=== PATIENT | male | born 1985 | race Hispanic/Latino ===

== ENCOUNTER 2018-05-20 19:07 | Emergency (ER) | payer OTHER ==
[~2018-05-20] VITALS: Ht 177.8 cm; Wt 97.5 kg
[~2018-05-20 19:07] MED LIST: MOTRIN 800MG T800 MG PO; PERCOCET 325 MG1 TA2 PO
[2018-05-20 19:17] VITALS: BP 132/79
[2018-05-20] MEDS ORDERED: CIPRODEX OTIC7.5 ML OT (21:00)
[2018-05-20] MEDS ORDERED: NAPROSYN500 M1 PO (21:00)
[2018-05-20] MEDS ORDERED: AMOXICILLIN875 M1 PO (21:00)
--- NOTE | 2018-05-20 21:00 | ED EAR COMPLAINT ---
History of Present Illness General Chief Complaint: Ear Complaints Stated Complaint: EAR PAIN Source: patient Exam Limitations: no limitations Vital Signs & Intake/Output Vital Signs & Intake/Output Vital Signs Date Time Temp Pulse Resp B/P B/P Pulse O2 O2 Flow FiO2 Mean Ox Delivery Rate 05/20 1917 97.7 70 18 132/79 96 Room Air Allergies Coded Allergies: NO KNOWN ALLERGIES (06/24/12) Reconcile Medications Amoxicillin 875 MG TABLET 1 TAB PO BID OTITIS MEDIA Ciprofloxacin HCl/Dexameth (Ciprodex Otic Suspension) 0.3 %-0.1 % DROPS.SUSP 4 GTT OT BID OTITIS EXTERNA Naproxen (Naprosyn) 500 MG TABLET 1 TAB PO BID PRN PAIN OXYCODONE HCL/ACETAMINOPHEN (Percocet 5-325 MG Tablet) 325 MG/5 MG TAB 1-2 TAB PO Q4-6 PRN PRN PAIN Yibuprofen (Motrin 800MG Tab) 800 MG TABLET 1 TAB PO Q8P PRN PAIN Triage Note: PT FROM HOME C/O RIGHT EAR ACHE X4 DAYS. PT STATES HE HAS PAIN 8/10 WITH A "HOWLING" NOISE PER PT. PT STATES HE HAS CLEAR/YELLOW DRAINAGE. VSS. Triage Nurses Notes Reviewed? yes Onset: Abrupt Duration: day(s): (4), constant, continues in ED, getting worse Timing: single episode today Injury Environment: home Severity: moderate, severe Severity Numbers: 8 No Modifying Factors: none HPI: 32-year-old male history of recurrent ear infections presents for evaluation of pain and discharge from his right ear. Patient reports symptoms started 4 days ago and been persistent. He has a history of a perforated eardrum on that side. He reports whitish yellow discharge from the ear. He denies fever. He does report muffled hearing. No cough congestion chest pain or shortness of breath. He is taking Tylenol without much improvement. (Bob Limon) Past History Travel History Traveled to [place] past 21 day No Medical History Any Pertinent Medical History? 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 No (Bob Limon) Review of Systems Review of Systems Constitutional: Reports: no symptoms. EENTM: Reports: see HPI, ear discharge, ear pain. Respiratory: Reports: no symptoms. Cardiovascular: Reports: no symptoms. GI: Reports: no symptoms. Genitourinary: Reports: no symptoms. Musculoskeletal: Reports: no symptoms. Skin: Reports: no symptoms. Neurological/Psychological: Reports: no symptoms. Hematologic/Endocrine: Reports: no symptoms. Immunologic/Allergic: Reports: no symptoms. All Other Systems: Reviewed and Negative (Bob Limon) Physical Exam Physical Exam General Appearance: well developed/nourished, no apparent distress, alert, awake Head: atraumatic, normal appearance Eyes: Bilateral: normal appearance, EOMI. Ears: Left: canal normal, Tympanic normal. Right: discharge, erythema, swelling, tenderness, other (SEE COMMENTS BELOW). Nose: normal inspection Mouth/Throat: normal mouth inspection, pharynx normal Neck: normal inspection, supple, full range of motion Cardiovascular/Respiratory: normal breath sounds, normal peripheral pulses, regular rate/rhythm, no respiratory distress Back: normal inspection, normal range of motion Neurologic/Psych: no motor/sensory deficits, awake, alert, oriented x 3, normal gait, normal mood/affect Skin: intact, normal color, warm/dry Comments: The right external auditory canal is erythematous and edematous. There is purulent discharge in the canal. The tympanic membrane is unable to visualize due to swelling and discharge. No mastoid tenderness no radicular lymphadenopathy. There is pain with insertion of the speculum and palpation of the tragus (Bob Limon) Progress Differential Diagnoses I considered the following diagnoses in my evaluation of the patient: [Otitis externa otitis media cerumen impaction otitis media with effusion mastoiditis] Plan of Care: PT Is here with otitis externa. He is afebrile nontoxic-appearing he is not a diabetic. Patient will be given a prescription for Ciprodex naproxen and amoxicillin. Advised him to follow-up with ENT. Referral given. Discussed return precautions patient agrees the plan Initial ED EKG: none (Bob Limon) Departure Departure Disposition: HOME OR SELF CARE Condition: Stable Clinical Impression Primary Impression: Otitis externa Qualifiers: Otitis externa type: unspecified type Chronicity: acute Laterality: right Qualified Code: H60.501 - Unspecified acute noninfective otitis externa, right ear Referrals: Kevin VILLAGOMEZ,Olive Ansari Patient Has No Primary Care Dr (PCP/Family) Additional Instructions: Rest and drink plenty of fluids. Continue Tylenol as needed for pain. Naproxen can also be used as needed. Apply antibiotic drops for the full course. Take oral antibiotics for the full course. Keep your ears clean and dry. Do not use Q-tips. Make a follow-up with provided your nose and throat doctor as soon as possible. Monitor symptoms and return with any concern. Departure Forms: Customer Survey General Discharge Information Prescriptions: Current Visit Scripts Naproxen (Naprosyn) 1 TAB PO BID PRN PAIN #30 TAB Ciprofloxacin HCl/Dexameth (Ciprodex Otic Suspension) 4 GTT OT BID #1 BOT Amoxicillin 1 TAB PO BID #20 TAB (Bob Limon) PA/CAMPUS SAFETY OFFICER Co-Sign Statement Statement: ED Attending supervision documentation- [] I saw and evaluated the patient. I have also reviewed all the pertinent lab results and diagnostic results. I agree with the findings and the plan of care as documented in the PA's/CAMPUS SAFETY OFFICER's documentation. [X] I have reviewed the ED Record and agree with the PA's/CAMPUS SAFETY OFFICER's documentation. [] Additions or exceptions (if any) to the PAs/CAMPUS SAFETY OFFICER's note and plan are summarized below: [] (Monroe Messina DO
== END 2018-05-20 21:05 ==
LOC: ERH 19:07
DX: H60.91 Unspecified otitis externa, right ear (principal)